=== PATIENT | female | born 1950 | race Caucasian/White ===

== ENCOUNTER → 2017-06-14 07:49 | Outpatient (CLI) | payer OTHER, SELFPAY ==
--- NOTE | 2017-06-14 07:53 | HPBI_ITS ---
MAMMOGRAPHY - BILATERAL SCREENING REASON FOR EXAM: Female, 67 years old. Routine annual screening examination. PERTINENT HISTORY: Non-contributory. TECHNIQUE: Digital bilateral breast gume (3D mammographic acquisition) in the CC and MLO projections. 2-D mediolateral oblique (MLO) and craniocaudad (CC) views of both breasts were obtained. CAD: Full Field Digital Mammography with Computer Added Detection was performed. COMPARISON: Comparison is made with prior outside examination dated June 07, 2016. FINDINGS: Breast Composition: The breasts are heterogeneously dense, which may obscure small masses. There are no dominant masses or suspicious calcifications. No other significant abnormalities are identified. There has been no significant change since the prior study. HPBI/SCREENING MAMM (CAD), BILAT IMPRESSION: Stable bilateral screening mammogram. Yearly follow-up mammogram recommended. (A) ASSESSMENT CATEGORY: BIRADS Category 1: Negative. A letter regarding these results will be sent to the patient by the facility within 30 days. Approximately 10% of breast cancers are not detected by mammography. A normal mammogram should not delay biopsy of a clinically suspicious abnormality. [id number] Electronically Signed: Jung Engle MD at 9:07 EST Tel [phone], Service support ,
== END ==
PROVIDERS: Family Provider Student in an Organized Health Care Education/Training Program; PCP Student in an Organized Health Care Education/Training Program; Visit Provider Obstetrics & Gynecology
DX: Z12.31 Encounter for screening mammogram for malignant neoplasm of breast (principal)
CPT/HCPCS: 77063; 77067

== ENCOUNTER → 2018-06-20 09:59 | Outpatient (CLI) | payer OTHER, SELFPAY ==
--- NOTE | 2018-06-20 10:02 | BI_ITS ---
MAMMOGRAPHY - BILATERAL SCREENING REASON FOR EXAM: Female, 68 years old. Routine annual screening examination. PERTINENT HISTORY: Non-contributory. TECHNIQUE: Digital bilateral breast carrie (3D mammographic acquisition) in the CC and MLO projections. 2-D mediolateral oblique (MLO) and craniocaudad (CC) views of both breasts were obtained. CAD: Full Field Digital Mammography with Computer Added Detection was performed. COMPARISON: Comparison is made with prior examination dated June 14, 2017 and June 07, 2016. FINDINGS: Breast Composition: The breasts are heterogeneously dense, which may obscure small masses. There are no dominant masses or suspicious calcifications. No other significant abnormalities are identified. There has been no significant change since the prior study. BI/SCREEN MAMM (CAD) W/CARRIE BILAT IMPRESSION: Stable bilateral screening mammogram. Yearly follow-up mammogram recommended. (A) ASSESSMENT CATEGORY: BIRADS Category 1: Negative. A letter regarding these results will be sent to the patient by the facility within 30 days. Approximately 10% of breast cancers are not detected by mammography. A normal mammogram should not delay biopsy of a clinically suspicious abnormality. [id number] Electronically Signed: Jung Engle, at 13:12 EDT , Service support ,
== END ==
PROVIDERS: Family Provider Student in an Organized Health Care Education/Training Program; PCP Student in an Organized Health Care Education/Training Program; Referring Provider Obstetrics & Gynecology; Visit Provider Obstetrics & Gynecology
DX: Z12.31 Encounter for screening mammogram for malignant neoplasm of breast (principal)
CPT/HCPCS: 77063; 77067

== ENCOUNTER → 2018-06-22 10:49 | Outpatient (CLI) | payer OTHER, SELFPAY ==
[2018-06-20 11:02] VITALS: BMI 21.6
--- NOTE | 2018-06-22 10:59 | US_ITS ---
STUDY: ULTRASOUND BREAST - LEFT REASON FOR EXAM: Female, 68 years old. Palpable lump left breast. TECHNIQUE: Axial and longitudinal images of the LEFT breast were performed with a high resolution ultrasound transducer. COMPARISON: Comparison is made with prior mammogram dated June 20, 2018. FINDINGS: LEFT Breast: The upper half of the breast was examined by ultrasound. There is homogeneous fibroglandular tissue. No solid or cystic mass lesion is seen. US/Breast Limited Unilateral IMPRESSION: Unremarkable examination of the upper aspect of the left ASSESSMENT CATEGORY: BIRADS Category 1: Negative. A letter regarding these results will be sent to the patient by the facility within 30 days. Electronically Signed: Jung Engle, at 13:32 EDT , Service support ,
== END ==
PROVIDERS: Family Provider Student in an Organized Health Care Education/Training Program; PCP Student in an Organized Health Care Education/Training Program; Referring Provider Obstetrics & Gynecology; Visit Provider Obstetrics & Gynecology
DX: R92.8 Other abnormal and inconclusive findings on diagnostic imaging of breast (principal)
CPT/HCPCS: 76642

== ENCOUNTER → 2019-11-07 | Outpatient (CLI) | payer OTHER, SELFPAY ==
[2019-11-07 13:57] VITALS: BMI 21.6
== END | disposition home or self-care (01) ==
LOC: LABSPEC 16:35
PROVIDERS: PCP Student in an Organized Health Care Education/Training Program; Referring Provider Nurse Practitioner Women's Health; Visit Provider Nurse Practitioner Women's Health
DX: N39.0 Urinary tract infection, site not specified (principal)
CPT/HCPCS: 87077; 87086; 87088; 87186

== ENCOUNTER 2020-06-12 10:41 | Outpatient (RCR) | payer OTHER, SELFPAY ==
[2019-11-07 13:57] VITALS: BMI 21.6
[2020-06-12] MEDS: COVID-19 VACC, MRNA(PFIZER)/PF 30 MCG/0.3 ML SYRINGE IM (07:38)
[2020-07-03] MEDS: COVID-19 VACC, MRNA(PFIZER)/PF 30 MCG/0.3 ML SYRINGE IM (07:30)
== END 2020-06-12 23:59 ==
LOC: IMMUN 10:41
PROVIDERS: PCP Student in an Organized Health Care Education/Training Program; Referring Provider Family Medicine; Visit Provider Family Medicine
DX: Z23 Encounter for immunization (principal)
CPT/HCPCS: 0001A; 0002A

== ENCOUNTER → 2020-08-04 | Outpatient (CLI) | payer OTHER, SELFPAY ==
[2020-08-04 11:47] VITALS: BMI 22.4
== END | disposition home or self-care (01) ==
LOC: LABSPEC 13:09
PROVIDERS: PCP Student in an Organized Health Care Education/Training Program; Referring Provider Nurse Practitioner Women's Health; Visit Provider Nurse Practitioner Women's Health
DX: R30.9 Painful micturition, unspecified (principal)
CPT/HCPCS: 87086; 87088

== ENCOUNTER → 2020-09-02 10:09 | Outpatient (CLI) | payer OTHER, SELFPAY ==
[2019-11-07 13:57] VITALS: BMI 21.6
[2020-08-04 11:47] VITALS: BMI 22.4
--- NOTE | 2020-09-02 10:11 | BI_ITS ---
MAMMOGRAPHY - BILATERAL SCREENING REASON FOR EXAM: Female, 70 years old. Routine annual screening examination. PERTINENT HISTORY: Non-contributory. TECHNIQUE: Digital bilateral breast carrie (3D mammographic acquisition) in the CC and MLO projections. 2-D mediolateral oblique (MLO) and craniocaudad (CC) views of both breasts were obtained. CAD: Full Field Digital Mammography with Computer Added Detection was performed. COMPARISON: Comparison is made with prior study dated 06/20/2018 and 06/14/2017. FINDINGS: Breast Composition: The breasts are heterogeneously dense, which may obscure small masses. There are no dominant masses or suspicious calcifications. No other significant abnormalities are identified. There has been no significant change since the prior study. BI/SCRN MAMM (CAD)W/CARRIE BILAT IMPRESSION: Stable bilateral screening mammogram. Yearly follow-up mammogram recommended. (A) ASSESSMENT CATEGORY: BIRADS Category 1: Negative. A letter regarding these results will be sent to the patient by the facility within 30 days. Approximately 10% of breast cancers are not detected by mammography. A normal mammogram should not delay biopsy of a clinically suspicious abnormality. [id number] Electronically Signed: Jung Engle MD at 10:51 EDT , Service support ,
== END ==
PROVIDERS: PCP Student in an Organized Health Care Education/Training Program; Referring Provider Obstetrics & Gynecology; Visit Provider Obstetrics & Gynecology
DX: Z12.31 Encounter for screening mammogram for malignant neoplasm of breast (principal)
CPT/HCPCS: 77063; 77067

== ENCOUNTER → 2022-06-10 | Outpatient (CLI) | payer OTHER, SELFPAY ==
--- NOTE | 2022-06-10 09:42 | BI_ITS ---
MAMMOGRAPHY - BILATERAL SCREENING REASON FOR EXAM: Female, 72 years old. Routine annual screening examination. PERTINENT HISTORY: Left breast lump. TECHNIQUE: Digital bilateral breast carrie (3D mammographic acquisition) in the CC and MLO projections. 2-D mediolateral oblique (MLO) and craniocaudad (CC) views of both breasts were obtained. CAD: Full Field Digital Mammography with Computer Added Detection was performed. COMPARISON: Comparison is made with prior study dated September 02, 2020 and June 20, 2018. FINDINGS: Breast Composition: The breasts are heterogeneously dense, which may obscure small masses. There is a new 3 cm x 2.2 cm mass in the retroareolar region of the left breast. Correlation with ultrasound is recommended. No other significant abnormalities are identified. BI/SCRN MAMM (CAD)W/CARRIE BILAT IMPRESSION: New 3 cm x 2.2 cm mass in the retroareolar region of the left breast as described. Correlation with ultrasound is recommended. ASSESSMENT CATEGORY: BIRADS Category 0: Incomplete. Need additional imaging evaluation. A letter regarding these results will be sent to the patient by the facility within 30 days. Approximately 10% of breast cancers are not detected by mammography. A normal mammogram should not delay biopsy of a clinically suspicious abnormality. [id number] Electronically Signed: Jung Engle MD at 10:36 EST ,
--- NOTE | 2022-06-10 10:04 | US_ITS ---
STUDY: ULTRASOUND BREAST - LEFT REASON FOR EXAM: Female, 72 years old. Palpable lump left breast. TECHNIQUE: Axial and longitudinal images of the LEFT breast were performed with a high resolution ultrasound transducer. # OF IMAGES: 26 COMPARISON: Comparison is made with prior mammogram done earlier in the day. FINDINGS: LEFT Breast: There is a 1.9 cm x 2.5 cm by 1.9 cm complex cystic and solid mass in the retroareolar region of the breast with increased vascularity. Biopsy is strongly recommended. US/Breast Limited Unilateral IMPRESSION: 1.9 cm x 2.5 cm x 1.9 cm complex solid and cystic mass in the retroareolar region of the left breast. Biopsy strongly recommended. ASSESSMENT CATEGORY: BIRADS Category 5: Highly Suggestive of Malignancy - Appropriate Action Should Be Taken. A letter regarding these results will be sent to the patient by the facility within 30 days. Electronically Signed: Jung Engle MD at 11:22 EST ,
== END | disposition home or self-care (01) ==
LOC: OPBI 09:39
PROVIDERS: PCP Student in an Organized Health Care Education/Training Program; Visit Provider Obstetrics & Gynecology
DX: Z12.31 Encounter for screening mammogram for malignant neoplasm of breast (principal); N63.20 Unspecified lump in the left breast, unspecified quadrant
CPT/HCPCS: 76642; 77063; 77067

== ENCOUNTER → 2022-06-11 | Outpatient (CLI) | payer OTHER, SELFPAY ==
--- NOTE | 2022-06-11 | BRBX_PTH ---
PATIENT: MARINO ROJAS LOC: [facility] U#:[id number] AGE/SX: 72/F ROOM: RE06/11/[address]: Dr. Pau Cedeño MD : 1950 BED: DIS: 06/11/2022 SPEC #: [id number] RECD: 06/11/22 15:33 STATUS: ISACC REQ #: [id number] GILDA: 06/11/22 00:[address]: Pau Cedeño DEPT: SURGICAL PATHOLOGY RECD BY: Cesar Lopez ENTERED: 06/14/22 08:49 SP TYPE: BREAST BX OTHR DR: Dr. Thierry Reyes, DO Tissues: Left breast, NOS Procedures: Surgery Specimen Level IV HEADER OPERATION: Left breast biopsy of nodule PRE-OP DIAGNOSIS: Left breast nodule (likely cyst/hematoma) TISSUE SUBMITTED: Left breast nodule tissue retroareolar, likely hematoma MICROSCOPIC DIAGNOSIS Left breast nodule, core biopsy: Fragments of benign breast tissue with changes consistent with ruptured cyst and adjacent chronic inflammation. Negative for atypia or malignancy. See comment. KORTNEY:dickson 06/15/2022 COMMENT Chronic inflammatory cells infiltrates are noted involving adjacent blood vessels and breast lobules. Correlation with clinical, radiologic findings and appropriate follow up are necessary. Case has been reviewed in consultation with Dr. Drew who concurs with the above diagnosis. IDC:AM MICROSCOPIC DESCRIPTION Slides are reviewed. GROSS DESCRIPTION Received in fixative is one container labeled with the patient's name and designated left breast tissue. The specimen consists of two fragments of moody-yellow fibroadipose tissue measuring in aggregate 0.6 x 0.2 x 0.1 cm. The specimen is totally submitted in one cassette. / KORTNEY:dickson 06/14/2022 TC:3 CPT: 59777
== END | disposition home or self-care (01) ==
LOC: LABSPEC 15:40
PROVIDERS: PCP Student in an Organized Health Care Education/Training Program; Referring Provider Surgery; Visit Provider Surgery
DX: N63.20 Unspecified lump in the left breast, unspecified quadrant (principal)
CPT/HCPCS: 88305

== ENCOUNTER 2022-08-13 05:48 | Day surgery (SDC) | payer OTHER, SELFPAY ==
[2022-08-13] VITALS (8 sets, daily range): BP systolic 136–157; BP diastolic 73–86; PULSE 75–87; RESP 16; TEMP 36.2–36.6; O2SAT 92–100; BMI 23.8
--- NOTE | 2022-08-13 | IMM_PTH ---
PATIENT: MARINO ROJAS LOC: [facility] U#:[id number] AGE/SX: 72/F ROOM: RE08/13/[address]: Dr. Pau Cedeño MD : 1950 BED: DIS: 08/13/2022 SPEC #: [id number] RECD: 08/16/22 13:19 STATUS: ISACC REQ #: [id number] GILDA: 08/13/22 00:[address]: Pau Cedeño DEPT: IMMUNOHISTOCHEMISTRY RECD BY: Trini Bravo ENTERED: 08/16/22 13:20 SP TYPE: IMMUNO OTHR DR: Dr. Thierry Reyes, Tissues: Left breast, NOS Procedures: CALPONIN-1 (add) CK5-6 (add) CK8 (add) E-CAD (add) HER2 NI (add) KI-67 (add) P53 (add) HI (add) P40 (add) ER (initial) PHYSICIAN & INSTITUTION [address] [address] SPECIMEN INFORMATION: Tissue Source: Left breast mass, 10 o?clock, retroareolar Clinical Info: Left breast mass Specimen Number: [id number] CPT code: 41189, 38464 x6, 88416 x3 METHODOLOGY: Deparaffinized sections of prefer/formalin-fixed tissue or PAP/DQ stained slides are incubated with monoclonal/polyclonal antibodies/oligonucleotide probes. Localization is made via biotin free immunoperoxidase method. Appropriate controls are performed and reacted as expected. Results on target cell population are indicated in the following table: RESULTS: ANTIBODY / CLONE RESULT E-Cad (ECH-6) positive CK8 (61pvtyU87) positive Calponin-1 (HG277E) negative CK5-6 (D5 & 1684) negative P40 (BC28) negative P53 (DO-7) negative, null pattern Ki-67 (30-9) positive, low, ~15% MORPHOMETRIC ANALYSIS ER (clone 6F11) 95%, strong intensity HI (clone 16/1E2) variable 1 to 66%, moderate intensity Her-2Neu (clone CB11) 0 The prognostic test for HER2 is performed on formalin-fixed paraffin embedded tissue. A 3+ (positive) staining pattern is defined as intense, homogeneous, complete, circumferential membranous staining in >10% of contiguous tumor cells. A similar weak (2+) staining pattern is interpreted as equivocal. LIDIA follow-up testing is recommended for all equivocal cases. Positivity/negativity for ER/HI is reported if > or < 1% of the tumor cells are immuno- reactive, respectively. The ASCO/CAP criteria is used for scoring. Reference: Journal of Clinical Oncology, 2013; 31:6123-4515 & 2010; 16:2023-6024. Duration of fixation: 60 Hrs; Sample Adequate: Yes. These assays have not been validated on decalcified tissues. Results should be interpreted with caution given the likelihood of false negativity on decalcified specimens. These tests were developed and their performance characteristics determined by [facility]. They may not have been cleared or approved by the U.S. Food and Drug Administration. The FDA has determined that such clearance or approval is not necessary. The above immunohistochemical/dualISH markers are ordered and reviewed by the Pathologist. INTERPRETATION: Left breast mass, 10 o?clock, retroareolar, excisional biopsy: Invasive ductal carcinoma. Positive for estrogen receptors (favorable prognostic indicator). Positive for progesterone receptors (favorable prognostic indicator). Negative for overexpression of [id number]. SJ:dickson 08/17/2022
[2022-08-13] MEDS: Lactated Ringers 1,000 ML 15 ML IV (06:34)
--- NOTE | 2022-08-13 07:14 | HP.PCM_ITS ---
History and Physical Date of Admission: 08/13/22 Date of Service:? 08/06/22 MR#: [id number] Acct: [id number] Name:MARINO SMITH Rep #: [id number] : 1950 ? ? Provider: Dr. Pau Cedeño MD Age/Sex:? 72/F ? ? Location: [facility] Status: Signed Intake Vital Signs ? 08/06/2312:44 Height 5 ft 6 in Weight: 147 lb BMI 23.7 BP 157/89 H Blood Pressure Location Lt radial Position Sitting Respiration 18 Pulse 68 Pulse Source Monitor Temp 97.8 F Temp Source Temporal Intake Visit Reasons:?2WK Breast check Chief Complaint: L breast bx follow up Allergies adhesive [adhesives] Allergy (Mild, Verified 07/23/22 09:09) NEEDS FOLLOW-UPlevofloxacin [From Levaquin] Allergy (Mild, Verified 07/23/22 09:09) NEEDS FOLLOW-UP Medications multivitamin,ne-qvla-oyzdztmd (Complete Multivitamin tablet) 1 tab PO DAILY 06/20/18 [History Confirmed 08/06/22] ascorbate calcium (vitamin C) 814 mg/gram oral powder mg PO 11/07/19 [History Confirmed 08/06/22] aspirin 81 mg tablet,delayed release (Adult Aspirin Regimen) 81 mg PO DAILY 11/07/19 [History Confirmed 08/06/22] biotin 1 mg capsule 1 mg PO DAILY 11/07/19 [History Confirmed 08/06/22] calcium carbonate 600 mg-vitamin D3 12.5 mcg (500 unit) capsule (Calcium 600 with Vitamin D3) 2 cap PO 08/04/20 [History Confirmed 08/06/22] sertraline 50 mg tablet (Zoloft) 25 mg PO QDAY 08/04/20 [History Confirmed 08/06/22] cyanocobalamin (vitamin B-12) 1,000 mcg capsule 1,000 mcg PO QMONTH 06/10/22 [History Confirmed 08/06/22] ferrous sulfate 325 mg (65 mg iron) tablet (iron) 227 mg PO DAILY 06/10/22 [History Confirmed 08/06/22] rosuvastatin 5 mg tablet 12.5 mg PO DAILY 06/10/22 [History Confirmed 08/06/22] PFSH Medical History? Osteoporosis Surgical History? H/O breast biopsy History of hernia repair History of hysterectomy Family History? Grandmother CVA (cerebral vascular accident)Grandmother CVA (cerebral vascular accident)Mother Heart diseaseBrother Heart disease Social History? Smoking Status:? Never smoker second hand exposure:? No alcohol intake:? never what type of physical activity do you participate in:? walking frequency:? daily duration:? 45-60 minutes/day HPI HPI HPI: 72-year-old female presents for follow-up status post left breast mass biopsy pathology was consistent with ruptured cyst no malignancy.? Patient did have a lot of ecchymosis diffuse throughout her breast after the biopsy.? Patient states it is about the same from her last visit it is still slightly red occasionally tender but minimal.? Patient also admits to still having about the same size firm mass/nodule near her nipple. ROS General General: No weight change, appetite, fatigue, colon cancer, breast cancer or weakness HEENT HEENT: No difficulty swallowing, eye injury, eye surgery, swollen glands or hoarseness Endo Endocrine: No thyroid disease, diabetes mellitus, thyroid cancer, Hair loss, heat intolerance or cold intolerance Skin Skin: No rash or changing moles Breast Breast: No left breast lump, right breast lump, nipple discharge, breast pain, abnormal mammogram, abnormal US or breast enlargement Musc Musculoskeletal: No back problems, arthritis, rheumatoid arthritis, gout or joint pain Cardio Cardiovascular: No murmur, pacemaker, heart disease, atrial fibrillation, high blood pressure, heart attack, heart stent, palpitations, shortness of breat with exertion or chest pain Psych Psychiatric: No depression, anxiety or hearing voices Resp Respiratory: No shortness of breath, No sleep apnea, No cough, No COPD, No asthma, No emphysema and No wheezing Gastro Gastrointestinal: No abdominal pain, No nausea or vomiting, No diarrhea, No constipation, No blood in stool, No acid reflux, No hemorrhoids, No ulcers, No gallbladder problem and No black,tarry stools Aaron Hematologic: No blood thinners, No blood disorders, No bleeding, No anemia and No blood clots Neuro Neurologic: No system reviewed and no additional complaints, except as documented, No as per HPI, No abnormal gait, No abnormal hearing, No abnormal movements, No abnormal speech, No behavioral changes, No burning sensations, No confusion, No convulsions, No disequilibrium, No dizziness, No localized weakness, No frequent falls, No headache(s), No lack of coordination, No loss of vision, No memory loss, No numbness, No other visual disturbances, No radicular pain, No restless legs, No sensory deficit, No syncope, No tingling, No tremor(s), No weakness and No other Exam Const General: cooperative, healthy appearing and no acute distress HENMT Head: normal to inspection Chest Other: Breast inspection: Left breast slightly boyer than the right normal per patient Right breast: Fibroglandular tissue, no masses, no nipple discharge or change in overlying skin. Left breast: Faint erythema?likely resolving ecchymosis,? about a? 1.5 cm 1.5 cm mass about 10:00 in the retroareolar tissue. Resp Effort & Inspection: normal respiratory effort Cardio Rate: regular rate GI Inspection: non-distended Palpation: soft and nontender Neuro General: patient oriented x3 Extrem General: no clubbing, cyanosis or edema Psych Affect: normal affect Assessment and Plan Assessment and Plan (1) Left breast mass: ?Status:?Acute ?Comment: pathology c/w cyst; however there increased vascularity on US too Plan Plan for left breast mass excisional biopsy in the OR.? Discussed with the patient and her risk including to bleeding, infection, need for further surgery.? We will have patient hold her aspirin for 5 days.? Patient is agreeable plan. Pau Cedeño M.D. Pager: [phone] [facility] [address] [place] [address], [facility], [address] [place] [address] Office: [phone] Coding Level of Care Code Off vis,est,level 4 Diagnoses Left breast mass? N63.20 08/06/22 1401 <Electronically signed by Pau Cedeño MD> Date Pau Cedeño MD
[2022-08-13] MEDS: Cefazolin 2 GM in 0.9% Normal Saline 100 ML IV (07:39)
[2022-08-13] MEDS: Bupivacaine 0.25% 30 ML Vial (07:58)
--- NOTE | 2022-08-13 08:03 | OP.PCM_ITS ---
Report of Operation Date of Procedure: 08/13/22 Pre-Operative Diagnosis: Left breast mass Post-Operative Diagnosis: Left breast hemorrhagic cyst Surgery/Procedure Performed:: Excision of left breast cyst Surgeon: Pau Cedeño crystalizer operator: Siobhan Crouch Type of Anesthesia: General/Supplemental Anesthesiologist: Williams Head Special Medications: Ancef 2 g IV x1 Specimen's removed: Left breast hemorrhagic cyst 10:00 retroareolar Estimated Blood Loss (mL): <10 cc Description of Procedure: Patient was brought to the operating placed spinal operating table. Timeout was completed verifying correct patient, procedure, site, positioning, special, prior to beginning procedure. Left breast was prepped draped in usual sterile fashion. An incision was made along the areolar border overlying the patient's breast mass/cyst with a 15 blade scalpel. This was deepened with electrocautery. There was noted to be a small artery going into the cyst initially had some hematoma and then did control the small amount of bleeding with electrocautery. Electrocautery was used to remove the breast cyst. This was sent to pathology. Incision was closed with subdermal sutures of 3-0 Vicryl and skin was closed with running 4-0 Monocryl and Dermabond. Pressure dressing was placed and surgical bra. Patient tolerated procedure well was taken to the postanesthesia care in stable condition. Complications none
--- NOTE | 2022-08-13 08:07 | DCINST_ITS ---
Discharge Instructions Diet Discharge Diet: No restrictions Activity May shower in (days): 1 Lifting Restrictions: 10 pounds for 1 week. Additional Activity Instructions:: Keep the pressure dressing on today then okay to remove. Dressing / Incision Call your doctor if your incision/area has: Continuous Slow Oozing, Sudden Increased Bleeding, Increased Pain/ Swelling and Increased Redness Call your doctor if you observe: Fever of 101 or Higher Suture Line Care: Avoid Pulling/Pushing and Avoid Pinching/Bending Remove Dressing in: 1 day Additional Dressing/Incision Instructions:: Keep pressure dressing on today then okay to remove. Dermabond (glue?purplish in color) was used at the incision this may start to peel off in about 5 days. Follow Up Care Please Follow Up With: Pau Cedeño MD When: Please call [phone] for an appointment to be seen in 1-2 week. Test Results: Test results from this visit will be discussed in further detail at your follow- up appointment, if applicable. Discharge Plan Admission Attending Provider: Pau Cedeño Primary Care Provider: Thierry Reyes Discharge Orders/Prescriptions Prescriptions: Continued Complete Multivitamin tablet 1 tab PO DAILY biotin 1 mg capsule 1 mg PO DAILY ascorbate calcium (vitamin C) 814 mg/gram powder 814 mg PO DAILY calcium carbonate-vitamin D3 [Calcium 600 with Vitamin D3] 600 mg(1,500mg) - 500 unit capsule 2 cap PO DAILY ferrous sulfate [iron] 325 mg (65 mg iron) tablet 227 mg PO DAILY sertraline [Zoloft] 50 mg tablet 25 mg PO QDAY cyanocobalamin (vitamin B-12) 1,000 mcg capsule 1,000 mcg PO QWEEK rosuvastatin 5 mg tablet 12.5 mg PO DAILY omega 7-sww-ahl-fish oil 1,000 mg (120 mg-180 mg) capsule 1 cap PO DAILY Label Comments: 1 capsule by mouth as directed Held aspirin [Adult Aspirin Regimen] 81 mg tablet,delayed release (DR/EC) 81 mg PO DAILY Hold Instructions: Resume on 08/16/22. Referrals / Follow Up: Thierry Reyes DO [Primary Care Provider] - Disposition Disposition (needs filled in before D/C Order can be placed): Home, Self Care
[2022-08-13] MEDS: Acetaminophen/Codeine #3 Tablet 1 TABLET PO (10:04)
--- NOTE | 2022-08-13 11:27 | BR_PTH ---
PATIENT: MARINO ROJAS [place] [facility] [id number] AGE/SX: 72/F ROOM: RE08/13/[address]: Dr. Pau Cedeño MD : 1950 BED: DIS: 08/13/2022 SPEC #: [id number] RECD: 08/13/22 11:27 STATUS: ISACC REKetan #: [id number] GILDA: 08/13/22 11:[address]: Pau Cedeño DEPT: SURGICAL PATHOLOGY RECD BY: Bee Alcazar ENTERED: 08/13/22 12:37 SP TYPE: MAMOPLASTY OTHR DR: Dr. Thierry Reyes, DO Tissues: Left breast, NOS Procedures: Surgery Specimen Level IV HEADER OPERATION: Excision breast mass PRE-OP DIAGNOSIS: Left breast mass TISSUE SUBMITTED: Left breast mass, 10 o?clock, retroareolar MICROSCOPIC DIAGNOSIS Left breast mass, 10 o?clock, retroareolar, excisional biopsy: Invasive ductal carcinoma. See cancer summary in the comment section. SJ:rg 08/16/2022 COMMENT Immunohistochemistry ([id number]) supports the above diagnosis. BREAST CANCER SUMMARY Procedure - excision Specimen laterality - left Tumor site - 10 o?clock, retroareolar as per clinical information. Tumor size ? 0.6 x 0.6 cm (measured microscopically) Histologic type ? Invasive ductal carcinoma, no special type Histologic grade (Gabby grade): Glandular/tubular differentiation score - 3 Nuclear pleomorphism score - 2 Mitotic count score - 1 Overall grade - grade 2 (score of 6) Tumor focality ? single focus of invasive carcinoma. Ductal carcinoma in situ ? not identified Lobular carcinoma in situ - not identified Tumor extension: Skin ? skin is not present. Nipple ? not applicable Skeletal muscle ? no skeletal muscle present. Margins ? cannot be assessed. Regional lymph nodes ? no lymph nodes submitted or found. Lymphvascular invasion ? not identified Distant metastasis ? not applicable Additional Pathologic Findings - none Ancillary Studies: ([id number]) ER: positive (>95%, strong intensity) MO: positive, variable 1 to 66%, moderate intensity Exo9qeu: negative (0) Microcalcifications ? not identified Clinical History - Please make reference to previous specimen ([id number]) left breast nodule, core biopsy with diagnosis of ?fragments of benign breast tissue with focal changes consistent with ruptured cyst and adjacent chronic inflammation.? PATHOLOGIC STAGE: pT1b pNx pMx The above summary is in compliance with [employer] (CAP) Cancer Protocols Checklist and [place] [employer] Committee on Cancer (AJCC), Staging Manual, 8th Ed. This case is discussed with Dr. Cedeño on 08/17/2022. Case has been reviewed in consultation with Dr. Drew who concurs with the above diagnosis. IDC:AM MICROSCOPIC DESCRIPTION Slides are reviewed. GROSS DESCRIPTION Received in fixative is one container labeled with the patient's name and designated left breast mass. The specimen consists of unoriented moody, rubbery tissue measuring 1.5 x 1.5 x 0.5 cm. The specimen is bisected and totally submitted in one cassette. / AM:dickson 08/13/2022 TC:0 CPT: 50199
== END 2022-08-13 10:49 | disposition home or self-care (01) ==
LOC: SDC 05:53 → AC 05:56
PROVIDERS: PCP Student in an Organized Health Care Education/Training Program; Referring Provider Surgery; Visit Provider Surgery
PROC: (CPT 19120; principal; 2022-08-13 07:15)
DX: C50.212 Malignant neoplasm of upper-inner quadrant of left female breast (principal); F41.9 Anxiety disorder, unspecified; F32.A Depression, unspecified; E61.1 Iron deficiency; M81.0 Age-related osteoporosis without current pathological fracture; Z79.82 Long term (current) use of aspirin; Z79.899 Other long term (current) drug therapy
CPT/HCPCS: 19120; 00400; 88305; 88341; 88342; A4648; J7120; J2405